=== PATIENT | male | born 1975 | race Caucasian/White ===

== ENCOUNTER → 2020-10-24 | Outpatient (CLI) | payer OTHER ==
[2020-10-24 11:19] LABS: Basophils # (A) 0.02 X 10*3/uL (0.00-0.10); Basophils % (A) 0.3 %; Eosinophils # (A) 0.08 X 10*3/uL (0.04-0.35); Eosinophils % (A) 1.3 %; HCT 47.4 % (39.6-50.0); HGB 15.4 g/dL (13.0-17.0); Lymphocytes # (A) 1.99 X 10*3/uL (0.90-5.00); Lymphocytes % (A) 31.9 %; MCH 30.1 pg (27.0-32.0); MCHC 32.5 g/dL (32.0-37.0); MCV 92.6 fL (80.0-97.0); Mean Platelet Volume 9.8 fL (9.5-12.2); Monocytes # (A) 0.57 X 10*3/uL (0.20-1.00); Monocytes % (A) 9.1 %; Neutrophils # (A) 3.51 X 10*3/uL (1.80-7.70); Neutrophils % (A) 56.4 %; Platelet Count 224 X 10*3/uL (140-440); RBC 5.12 X 10*6/uL (4.40-5.60); RDW 12.7 % (11.5-14.5); WBC 6.23 X 10*3/uL (4.50-10.00)
[2020-10-24 13:50] LABS: African American GFR (CKD) 123.3 (60.0-200.0); Albumin 4.5 g/dL (3.80-4.90); Albumin/Globulin Ratio 1.73 (1.60-3.17); Anion Gap 9.4 mmol/L (4.00-12.00); Calcium 9.2 mg/dL (8.7-10.3); Carbon Dioxide 25.6 mmol/L (21.6-31.8); Globulin 2.6 g/dL (1.6-3.3); Non-African American GFR(CKD) 106.4 (60.0-200.0); PSA Annual Screen 0.6 ng/mL (0.0-4.0); Potassium 4.3 mmol/L (3.5-5.5); Total Bilirubin 0.6 mg/dL (0.2-1.2); Total Protein 7.1 g/dL (6.2-8.2)
== END | disposition home or self-care (01) ==
LOC: LABWHC1 07:08
PROVIDERS: ATTEND Internal Medicine
DX: Z00.00 Encounter for general adult medical examination without abnormal findings (principal)
CPT/HCPCS: 80061; 80053; 84443; 85025; 83721; 36415; G0103

== ENCOUNTER → 2023-05-11 | Outpatient (CLI) | payer OTHER ==
--- NOTE | 2023-05-12 09:27 | XR ---
EXAMINATION TYPE: XR lumbar spine 2 or 3V DATE OF EXAM: 05/11/2023 5:13 PM CLINICAL INDICATION:Male, 47 years old with history of M54.90 DORSALGIA, UNSPECIFIED; [facility] COMPARISON: None TECHNIQUE: XR lumbar spine 2 or 3V - Frontal, lateral and coned in L5-S1 lateral views of the spine. FINDINGS: No evidence of any acute osseous pathology. No evidence of loss of vertebral body height i s seen. There is normal alignment of the lumbar vertebral bodies. Mild scattered disc space narrowing . Multilevel marginal osteophyte formation throughout the visualized spine. There is facet joint arth ropathy throughout the spine. Scattered at least moderate neural foraminal stenosis at L5-S1. IMPRESSION: 1. No acute fracture. 2. Mild multilevel disc degeneration. Neural foraminal stenosis worse at L5-S1 with at least moderate .
== END | disposition home or self-care (01) ==
LOC: RADXRMAIN 16:52
PROVIDERS: ATTEND Family Medicine
DX: M51.37 Other intervertebral disc degeneration, lumbosacral region (principal); M99.73 Connective tissue and disc stenosis of intervertebral foramina of lumbar region
CPT/HCPCS: 72100

== ENCOUNTER → 2023-05-26 | Outpatient (CLI) | payer OTHER ==
--- NOTE | 2023-05-26 16:50 | XR ---
EXAMINATION TYPE: XR chest 2V DATE OF EXAM: 05/26/2023 4:31 PM CLINICAL INDICATION:Male, 47 years old with history of R05.3 CHRONIC COUGH; COMPARISON: None TECHNIQUE: XR chest 2V Frontal and lateral views of the chest. FINDINGS: Lungs/Pleura: There is no evidence of pleural effusion, focal consolidation, or pneumothorax. Pulmonary vascularity: Unremarkable. Heart/mediastinum: Cardiomediastinal silhouette is unremarkable. Musculoskeletal: No acute osseous pathology. IMPRESSION: No acute cardiopulmonary disease/process.
== END | disposition home or self-care (01) ==
LOC: RADXRMAIN 16:18
PROVIDERS: ATTEND Internal Medicine
DX: R05.3 Chronic cough (principal)
CPT/HCPCS: 71046

== ENCOUNTER → 2023-08-03 | Outpatient (CLI) | payer BC ==
--- NOTE | 2023-08-03 23:01 | MR ---
EXAMINATION TYPE: MR lumbar spine wo con DATE OF EXAM: 08/03/2023 COMPARISON: Prior lumbar spine x-ray May 11, 2023 HISTORY: Low back pain into right side for 15 to 20 years TECHNIQUE: Multiplanar, multisequence imaging of the lumbar spine is performed without IV contrast. FINDINGS: Sagittal images of the lumbar spine show vertebral body heights and alignment to appear sat isfactory. There is disc desiccation with moderate disc space narrowing at L5-S1 level. The conus me dullaris is normal in position and signal ending at T12-L1 level. Small osseous hemangioma at the pos terior L3 level is seen sagittal image 11. Axial images show T12-L1 level to appear within normal limits. Axial images at L1-L2 level show mild broad disc bulge minimally effacing the anterior thecal sac. Pa tent bilateral neural foramina. Axial images at L2-L3 and L3-L4 levels appear within normal limits. Axial images at L4-L5 level show mild broad disc bulge and mild facet arthropathy bilaterally but spi nal canal is preserved and bilateral neural foramina are patent. Axial images at L5-S1 levels with mild facet arthropathy bilaterally. Subtle spondylolisthesis is see n. Spinal canal preserved. Bilateral foramina are patent. Paraspinal muscle bulk is maintained. IMPRESSION: Some multilevel degenerative change in the lumbar spine most prominent at L5-S1 level as detailed above.
== END | disposition home or self-care (01) ==
LOC: RADMRIMAIN 20:45
PROVIDERS: ATTEND Orthopaedic Surgery
DX: M47.817 Spondylosis without myelopathy or radiculopathy, lumbosacral region (principal)
CPT/HCPCS: 72148

== ENCOUNTER 2023-10-08 09:05 | Day surgery (SDC) | payer BC ==
[~2023-10-08 09:05] MED LIST: ACETAMINOPHEN TAB 500 MG TAB ONE; DEXAMETHASONE SOD PHOSPHATE 4 MG/ML 1 ML VIAL ONE; HEPARIN SODIUM,PORCINE 5,000 UNIT/ML 1 ML VIAL ONE; ONDANSETRON 4 MG/2 ML VIAL ONE
[2023-10-08] MEDS ORDERED: NEOSTIGMINE 1 MG/ML 10 ML VIAL ONE (09:11)
[2023-10-08] MEDS ORDERED: SUCCINYLCHOLINE CHLORIDE 200 MG/10 ML VIAL IV ONE (09:11)
[2023-10-08] MEDS ORDERED: MIDAZOLAM 2 MG/2 ML VIAL ONE (09:11)
[2023-10-08] MEDS ORDERED: LIDOCAINE 1% INJ 10MG/ML (20 ML MDV) ONE (09:11)
[2023-10-08] MEDS ORDERED: fentaNYL (PF) 50 MCG/ML 2 ML AMP ONE (09:11)
[2023-10-08] MEDS ORDERED: GLYCOPYRROLATE 0.2 MG/ML 2 ML VIAL ONE (09:11)
[2023-10-08] MEDS ORDERED: ROCURONIUM 10 MG/ML (5 ML VIAL) IV ONE (09:11)
[2023-10-08] MEDS ORDERED: PROPOFOL 10 MG/ML 20 ML VIAL IV ONE (09:11)
[2023-10-08] MEDS ORDERED: BUPIVACAINE (PF) 0.25% 10 ML VIAL ONE (09:19)
[2023-10-08] MEDS ORDERED: SODIUM CHLORIDE 0.9% 50 ML BAG IV ONE (09:19)
[2023-10-08] MEDS ORDERED: ceFAZolin 1,000 MG VIAL ONE (09:19)
[2023-10-08] MEDS ORDERED: LACTATED RINGERS 1,000 ML BAG ONE (09:19)
== END 2023-10-08 12:30 ==
LOC: OR 09:05
PROVIDERS: ATTEND Surgery
DX: K42.9 Umbilical hernia without obstruction or gangrene
CPT/HCPCS: 88302